=== PATIENT | male | born 1945 | race Caucasian/White ===

== ENCOUNTER 2017-10-15 08:23 | Emergency (ER) | payer MEDICARE, MEDICAID ==
[2017-10-15 08:34] VITALS: BP 140/62
[2017-10-15] MEDS ORDERED: ALBUTEROL SULFATE/IPRATROPIUM 3 ML NEBU IH ONE ×2 (09:15→09:18)
--- NOTE | 2017-10-15 10:40 | ERNOTE ---
Date of Service: 10/15/17 Time Seen by Provider: 10/15/17 09:09 Stated Complaint: URI Presenting Symptoms:: cough Source: patient Exam Limitations: no limitations Immunizations: IMMUNIZATION HX Immunizations Up to Date Yes History of Influenza Vaccine No Hx Pneumococcal Vaccination Yes Allergies/Adverse Reactions: Allergies No Known Allergies Allergy (Unverified 10/15/17 08:31) Home Medications: HOME MEDICATIONS Albuterol Sulfate [Proair Hfa] 2 puff IH Q4H PRN #1 inhaler 10/15/17 [Last Taken Unknown] Levofloxacin [Levaquin] 500 mg PO DAILY #10 tab 10/15/17 [Last Taken Unknown] - History of Present Ilness Narrative: "I need something to knock this out". He relates 2-3 weeks of cough and green mucous. Nasal congestion. No CP, not SOB. He relates no clear fever. Noting seems to make this better or worse. No wheezing. Has not seen anyone else for this. No hemptysis. No calf pain or leg swelling. Timing: constant, getting worse Severity: moderate Frequency/Possible Cause: Reports: other - Has has this before and antibiotics have helped Modifying Factors - Improves: Reports: nothing Modifying Factors - Worsens: Reports: nothing Associated Symptoms: Reports: cough, nasal congestion. Denies: chest pain/ soreness, shortness of breath Prior Treatment: Denies: recently seen Review of Systems - Review of Systems Constitutional: Absent: fever ENT: Absent: sore throat Respiratory: Present: cough Cardiology: Absent: chest pain Gastrointestinal/Abdominal: Absent: abdominal pain Neurological: Absent: weakness - Patient's Past Medical History Patient History - Medical: No pertinent hx Patient History - Cardiac/Respiratory: Hyperlipidemia Patient History - Cancer: No Hx of Cancer Patient History - Surgical Procedures: No surgical history Patient History - Other: None - Social History Living Situations: home Abuse History: No History of abuse Psych History: No pertinent hx Smoking Status: Never smoker Have you smoked in the past 12 months: No Do you dip or chew tobacco: No Alcohol Use: sober Drug Use: none - Immunizations Immunizations Up to Date: Yes Hx Pneumococcal Vaccination: Yes History of Influenza Vaccine: No Physical Exam - Physical Exam General Appearance: Present: alert, no apparent distress, other - well hydrated , non-toxic, no distress, speaking in full sentences, occasional cough noted. Head Exam: Present: normal inspection, no evidence of injury Eye Exam: Normal inspection: bilateral, PERRL: bilateral Ears, Nose, Throat: Present: nasal congestion. Absent: pharyngeal erythema, pharyngeal swelling, tonsillar exudate, tonsillar swelling, dry mucous membranes Neck: Present: normal inspection Respiratory: Present: no respiratory distress, normal breath sounds, no accessory muscle use, other - frequent cough. Absent: rhonchi, stridor, wheezing Cardiovascular/Chest: Present: regular rate, rhythm, normal peripheral pulses Gastrointestinal/Abdominal: Present: normal bowel sounds, nontender, soft Back Exam: Present: normal range of motion Extremity Exam: Present: normal inspection, non-tender, other - no DVT findings Neurological Exam: Present: alert, normal mood/affect, no motor/sensory deficits Skin Exam: Present: normal color, warm/dry ED Progress - Vital Signs Patient's Vital Signs:: I have reviewed the patient's vital signs. Vital Signs: Vital Signs 10/15/17 10/15/17 08:29 09:30 Temperature 36.0 C L Pulse Rate 75 80 Respiratory 18 18 Rate Blood Pressure 140/62 O2 Sat by Pulse 97 97 Oximetry - X-Ray X-Ray #1 X-Ray: chest Interpretation: Interp. by me X-ray Comments: I reviewed official radiology report - Progress/Reassessment Chief Complaint: Upper Respiratory Symptoms Progress Note-Subjective: 10/15/17 10:39 No distress, no wheezing. I offered him additional testing with labs/etc but he declines this. He understands risks and benefits. Declines additional testing. He wants an antibiotic. Given the duration will give ABx and close f/ u. I discussed warnign signs and reasons to return as well as the need for close f/u. Departure Clinical Impression: Bronchitis - Departure Disposition: Home self-care Condition: Stable Instructions: Chronic Bronchitis Additional Instructions: Rest. Fluids. Antibiotics and inhaler as directed. Return if you change your mind about having any of the additional testing we discussed, develop fever, trouble breathing or if your condition worsens or changes in any way. Referrals: Elisa Gaming ARNP [Primary Care Provider] - Prescriptions: Albuterol Sulfate [Proair Hfa] 2 puff IH Q4H PRN #1 inhaler PRN Reason: Cough Levofloxacin [Levaquin] 500 mg PO DAILY #10 tab
== END 2017-10-15 10:47 | disposition home or self-care (01) ==
LOC: ER 08:23
DX: J40 Bronchitis, not specified as acute or chronic